=== PATIENT | male | born 1995 | race Caucasian/White ===

== ENCOUNTER 2017-04-16 01:52 | Emergency (ER) | payer BC ==
[~2017-04-16] VITALS: Ht 170.2 cm; Wt 74.0 kg
[2017-04-16 03:43] VITALS: BP 122/64
== END 2017-04-16 04:34 | disposition short-term general hospital (02) ==
LOC: EMS 01:54
DX: S01.111A Laceration without foreign body of right eyelid and periocular area, initial encounter (principal); W51.XXXA Accidental striking against or bumped into by another person, initial encounter; Y93.67 Activity, basketball; Y92.89 Other specified places as the place of occurrence of the external cause; Y99.8 Other external cause status
CPT/HCPCS: 99285